=== PATIENT | female | born 1960 | race Two or more races ===

== ENCOUNTER 2018-02-19 09:00 | Outpatient (AMBR) | payer BC, SELFPAY ==
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
--- NOTE | 2018-02-12 16:25 | PT.ODAYNRPT ---
PT Outpatient Daily Note Date of Service: February 12, 2018 OP Daily Note Visit Reasons: low back Outpatient Physical Therapy Treatment Date: 02/12/18 Subjective: Pt's neck felt better after last treatment session. Pt still notice shoulder pain with overhead motions Objective: Please see flow chart for list of ther ex performed Assessment: decrease neck pain after therapy session. Length of Time (minutes) of Treatment: 45 Minutes Office Procedures PT Procedures PT Date of Service: 02/12/18 Therapeutic Exercise 30 minutes: Yes Manual Roller Printing Supervisor 15 minutes: Yes PT Procedures PT Date of Service: 02/07/18 OP PT Eval Mod Complex 30 minutes: Yes Manual Roller Printing Supervisor 15 minutes: Yes
--- NOTE | 2018-02-14 11:10 | PTNOTE_ITS ---
PT Outpatient Daily Note Date of Service: February 14, 2018 OP Daily Note Visit Reasons: low back Outpatient Physical Therapy Treatment Date: 02/14/18 Subjective: Pt's neck feels much better after last treatment session. Pt notice less headache. Pt still has a pinch with shoulder movement. Objective: Please see flow chart for list of ther ex performed Assessment: decrease R subocciptal musculatures as well as upper trape. Today Pt 's shoulder AROM is also better in scaption plane Plan: Continue with PT Length of Time (minutes) of Treatment: 45 Minutes Office Procedures PT Procedures PT Date of Service: 02/12/18 Therapeutic Exercise 30 minutes: Yes Manual Tuber Machine Operator 15 minutes: Yes PT Procedures PT Date of Service: 02/14/18 Therapeutic Exercise 30 minutes: Yes Manual Tuber Machine Operator 15 minutes: Yes PT Procedures PT Date of Service: 02/07/18 OP PT Eval Mod Complex 30 minutes: Yes Manual Tuber Machine Operator 15 minutes: Yes
--- NOTE | 2018-02-19 10:09 | PT.ODAYNRPT ---
PT Outpatient Daily Note Date of Service: February 19, 2018 OP Daily Note Visit Reasons: low back Outpatient Physical Therapy Treatment Date: 02/19/18 Subjective: Pt's neck feels much better or her shoulder is moving better with less pain Objective: Please see flow chart for list of ther ex performed Assessment: tolerate exercises with minimal pain; decrease suboccipital musculature as well as better shoulder mobility after treatment Plan: Continue with PT Length of Time (minutes) of Treatment: 45 Minutes Office Procedures PT Procedures PT Date of Service: 02/12/18 Therapeutic Exercise 30 minutes: Yes Manual Luster Applicator 15 minutes: Yes PT Procedures PT Date of Service: 02/14/18 Therapeutic Exercise 30 minutes: Yes Manual Luster Applicator 15 minutes: Yes PT Procedures PT Date of Service: 02/19/18 Therapeutic Exercise 30 minutes: Yes Manual Luster Applicator 15 minutes: Yes PT Procedures PT Date of Service: 02/07/18 OP PT Eval Mod Complex 30 minutes: Yes Manual Luster Applicator 15 minutes: Yes
== END 2018-02-19 23:59 | disposition home or self-care (01) ==
PROVIDERS: PCP Internal Medicine; Referring Provider Internal Medicine; Visit Provider Internal Medicine
DX: M54.5 Low back pain (principal); M25.511 Pain in right shoulder
CPT/HCPCS: 97110; 97140; 97162

== ENCOUNTER 2018-03-19 10:00 | Outpatient (AMBR) | payer BC, SELFPAY ==
--- NOTE | 2018-02-21 09:58 | PTNOTE_ITS ---
PT Outpatient Daily Note Date of Service: February 21, 2018 OP Daily Note Visit Reasons: low back pain Outpatient Physical Therapy Treatment Date: 02/21/18 Subjective: Pt's neck and shoulder feels much better. Pt still notice some tightness on the right side. Objective: Please see flow chart for list of ther ex performed Assessment: tolerate exercises with minimal pain; today left suboccipital muscular tightness, however, decrease after STM Plan: Continue with PT Length of Time (minutes) of Treatment: 45 Minutes Office Procedures PT Procedures PT Date of Service: 02/21/18 Therapeutic Exercise 30 minutes: Yes Manual Fur Dressing Supervisor 15 minutes: Yes
--- NOTE | 2018-02-26 11:36 | PT.ODAYNRPT ---
PT Outpatient Daily Note Date of Service: February 26, 2018 OP Daily Note Visit Reasons: low back pain Outpatient Physical Therapy Treatment Date: 02/26/18 Subjective: Pt's neck is not feeling too well today. Pt's shoulder is getting better. Pt thinks that there's a torn muscle Objective: Please see flow chart for list of ther ex performed Assessment: today tight subocciptal and right levator and upper trape musculature; decrease tension after stretch and STM. Pt continues to improve with right shoulder mobility with less end range pain Plan: Continue with PT Length of Time (minutes) of Treatment: 45 Minutes Office Procedures PT Procedures PT Date of Service: 02/21/18 Therapeutic Exercise 30 minutes: Yes Manual Fish Boning Machine Feeder 15 minutes: Yes PT Procedures PT Date of Service: 02/26/18 Therapeutic Exercise 30 minutes: Yes Manual Fish Boning Machine Feeder 15 minutes: Yes
--- NOTE | 2018-02-28 13:42 | PT.ODAYNRPT ---
PT Outpatient Daily Note Date of Service: February 28, 2018 OP Daily Note Visit Reasons: low back pain Outpatient Physical Therapy Treatment Date: 02/28/18 Subjective: pt reported feeling discomfort on the R side of the neck upon visit. pt has difficulty sleeping due to pain. Objective: see flow sheet. Assessment: started off with STM to the neck and palpated a lot of elvia and is very tender on both sides of the UT. pt had no complaints of the pressure during STM as she tolerated well. pt demonstrated limited shoulder flexion during OH exercise using thera band of the R shoulder due to pain. Plan: continue POC per PT. Length of Time (minutes) of Treatment: 30 Minutes Office Procedures PT Procedures PT Date of Service: 02/21/18 Therapeutic Exercise 30 minutes: Yes Manual Steamblaster 15 minutes: Yes PT Procedures PT Date of Service: 02/26/18 Therapeutic Exercise 30 minutes: Yes Manual Steamblaster 15 minutes: Yes PT Procedures PT Date of Service: 02/28/18 Therapeutic Exercise 15 minutes: Yes Manual Steamblaster 15 minutes: Yes
--- NOTE | 2018-02-28 13:47 | PTNOTE_ITS ---
PT Outpatient Daily Note Date of Service: February 28, 2018 OP Daily Note Visit Reasons: low back pain Outpatient Physical Therapy Treatment Date: 02/28/18 Subjective: pt reported feeling discomfort on the R side of the neck upon visit. pt has difficulty sleeping due to pain. Objective: see flow sheet. Assessment: started off with STM to the neck and palpated a lot of elvia and is very tender on both sides of the UT. pt had no complaints of the pressure during STM as she tolerated well. pt demonstrated limited shoulder flexion during OH exercise using thera band of the R shoulder due to pain. Plan: continue POC per PT. Length of Time (minutes) of Treatment: 30 Minutes Office Procedures PT Procedures PT Date of Service: 02/21/18 Therapeutic Exercise 30 minutes: Yes Manual Electrical Calibrator 15 minutes: Yes PT Procedures PT Date of Service: 02/26/18 Therapeutic Exercise 30 minutes: Yes Manual Electrical Calibrator 15 minutes: Yes PT Procedures PT Date of Service: 02/28/18 Therapeutic Exercise 15 minutes: Yes Manual Electrical Calibrator 15 minutes: Yes
--- NOTE | 2018-03-05 11:24 | PTNOTE_ITS ---
PT Outpatient Daily Note Date of Service: March 05, 2018 OP Daily Note Visit Reasons: low back pain Outpatient Physical Therapy Treatment Date: 03/05/18 Subjective: Pt mention that her neck is hurting today. Pt didn't do anything different. Pt still notice some deep right side neck pain. Objective: Please see flow chart for list of ther ex performed Assessment: decrease R neck pain; Pt given HEP today to continue stretches on the right side to maintain flexibility. Pt demonstrate HEP safely Plan: Continue with PT Length of Time (minutes) of Treatment: 30 Minutes Office Procedures PT Procedures PT Date of Service: 02/21/18 Therapeutic Exercise 30 minutes: Yes Manual Signals Collector/Analyst 15 minutes: Yes PT Procedures PT Date of Service: 02/26/18 Therapeutic Exercise 30 minutes: Yes Manual Signals Collector/Analyst 15 minutes: Yes PT Procedures PT Date of Service: 02/28/18 Therapeutic Exercise 15 minutes: Yes Manual Signals Collector/Analyst 15 minutes: Yes PT Procedures PT Date of Service: 03/05/18 Therapeutic Exercise 15 minutes: Yes Manual Signals Collector/Analyst 15 minutes: Yes
--- NOTE | 2018-03-07 12:07 | PT.ODAYNRPT ---
PT Outpatient Daily Note Date of Service: March 07, 2018 OP Daily Note Visit Reasons: low back pain Outpatient Physical Therapy Treatment Date: 03/07/18 Subjective: Pt's neck feels better with the HEP. Today Pt notice a pinching pain in the right shoulder. Objective: Please see flow chart for list of ther ex performed Assessment: MWM shoulder flexion decrease shoulder flexion pain while performing mobilization but no carry over when patient perform shoulder flexion arom. Pt exhibit less tension within her neck musculatures today which is from a good carryover from HEP Plan: Continue with PT Length of Time (minutes) of Treatment: 30 Minutes Office Procedures PT Procedures PT Date of Service: 02/21/18 Therapeutic Exercise 30 minutes: Yes Manual Blocker And Sewer 15 minutes: Yes PT Procedures PT Date of Service: 02/26/18 Therapeutic Exercise 30 minutes: Yes Manual Blocker And Sewer 15 minutes: Yes PT Procedures PT Date of Service: 02/28/18 Therapeutic Exercise 15 minutes: Yes Manual Blocker And Sewer 15 minutes: Yes PT Procedures PT Date of Service: 03/05/18 Therapeutic Exercise 15 minutes: Yes Manual Blocker And Sewer 15 minutes: Yes PT Procedures PT Date of Service: 03/07/18 Therapeutic Exercise 15 minutes: Yes Manual Blocker And Sewer 15 minutes: Yes
--- NOTE | 2018-03-12 12:07 | PT.ODAYNRPT ---
PT Outpatient Daily Note Date of Service: March 12, 2018 OP Daily Note Visit Reasons: low back pain Outpatient Physical Therapy Treatment Date: 03/12/18 Subjective: Pt mention that her neck is hurting this week. Pt still notice that neck pain on the right side that is deep and close to her shoulder blade. Pt has been trying to do her exercises at home. Objective: Please see flow chart for list of ther ex performed Assessment: review c/s stretches with patient and educated her to continue at home to maintain her right neck musculatures flexibility. Pt's neck pain decrease after therapy session Plan: Continue with PT Length of Time (minutes) of Treatment: 30 Minutes Office Procedures PT Procedures PT Date of Service: 02/21/18 Therapeutic Exercise 30 minutes: Yes Manual Humanities And Languages Professor 15 minutes: Yes PT Procedures PT Date of Service: 03/12/18 Therapeutic Exercise 15 minutes: Yes Manual Humanities And Languages Professor 15 minutes: Yes PT Procedures PT Date of Service: 02/26/18 Therapeutic Exercise 30 minutes: Yes Manual Humanities And Languages Professor 15 minutes: Yes PT Procedures PT Date of Service: 02/28/18 Therapeutic Exercise 15 minutes: Yes Manual Humanities And Languages Professor 15 minutes: Yes PT Procedures PT Date of Service: 03/05/18 Therapeutic Exercise 15 minutes: Yes Manual Humanities And Languages Professor 15 minutes: Yes PT Procedures PT Date of Service: 03/07/18 Therapeutic Exercise 15 minutes: Yes Manual Humanities And Languages Professor 15 minutes: Yes
--- NOTE | 2018-03-14 13:10 | PT.ODAYNRPT ---
PT Outpatient Daily Note Date of Service: March 14, 2018 OP Daily Note Visit Reasons: low back pain Outpatient Physical Therapy Treatment Date: 03/14/18 Subjective: pt doing well today as she had no complaints. Objective: see flow sheet. Assessment: updated HEP and handed pt a copy. went through all new exercises and she performed a few reps for each exercises after I demonstrated the correct way. answered all pt's questions. pt had no difficulty performing the exercises but did have muscle fatigue of the upper back/neck area. Plan: continue POC per PT. Length of Time (minutes) of Treatment: 30 Minutes Office Procedures PT Procedures PT Date of Service: 02/21/18 Therapeutic Exercise 30 minutes: Yes Manual Nremt 15 minutes: Yes PT Procedures PT Date of Service: 03/12/18 Therapeutic Exercise 15 minutes: Yes Manual Nremt 15 minutes: Yes PT Procedures PT Date of Service: 02/26/18 Therapeutic Exercise 30 minutes: Yes Manual Nremt 15 minutes: Yes PT Procedures PT Date of Service: 02/28/18 Therapeutic Exercise 15 minutes: Yes Manual Nremt 15 minutes: Yes PT Procedures PT Date of Service: 03/05/18 Therapeutic Exercise 15 minutes: Yes Manual Nremt 15 minutes: Yes PT Procedures PT Date of Service: 03/07/18 Therapeutic Exercise 15 minutes: Yes Manual Nremt 15 minutes: Yes PT Procedures PT Date of Service: 03/14/18 Therapeutic Exercise 30 minutes: Yes
--- NOTE | 2018-03-14 13:13 | PTNOTE_ITS ---
PT Outpatient Daily Note Date of Service: March 14, 2018 OP Daily Note Visit Reasons: low back pain Outpatient Physical Therapy Treatment Date: 03/14/18 Subjective: pt doing well today as she had no complaints. Objective: see flow sheet. Assessment: updated HEP and handed pt a copy. went through all new exercises and she performed a few reps for each exercises after I demonstrated the correct way. answered all pt's questions. pt had no difficulty performing the exercises but did have muscle fatigue of the upper back/neck area. Plan: continue POC per PT. Length of Time (minutes) of Treatment: 30 Minutes Office Procedures PT Procedures PT Date of Service: 02/21/18 Therapeutic Exercise 30 minutes: Yes Manual Electric Fan Assembler 15 minutes: Yes PT Procedures PT Date of Service: 03/12/18 Therapeutic Exercise 15 minutes: Yes Manual Electric Fan Assembler 15 minutes: Yes PT Procedures PT Date of Service: 02/26/18 Therapeutic Exercise 30 minutes: Yes Manual Electric Fan Assembler 15 minutes: Yes PT Procedures PT Date of Service: 02/28/18 Therapeutic Exercise 15 minutes: Yes Manual Electric Fan Assembler 15 minutes: Yes PT Procedures PT Date of Service: 03/05/18 Therapeutic Exercise 15 minutes: Yes Manual Electric Fan Assembler 15 minutes: Yes PT Procedures PT Date of Service: 03/07/18 Therapeutic Exercise 15 minutes: Yes Manual Electric Fan Assembler 15 minutes: Yes PT Procedures PT Date of Service: 03/14/18 Therapeutic Exercise 30 minutes: Yes
--- NOTE | 2018-03-19 11:20 | PT.ODS1RPT ---
PT OP Progress/Discharge Note Date of Service: March 19, 2018 Progress Note/DC Note Progress Note/Discharge Note: DC Note Patient Information Visit Reasons: low back pain Medical Diagnosis: Neck Pain; Right Shoulder Pain Treatment Dx #1: Neck Pain Treatment Dx #2: Right Shoulder Mobility Deficits Service Continue Service or Discharge: Discharge Discharge Date: 03/19/18 Status Subjective: Pt stated that her neck and right shoulder pain (5/10) is better since she started physical therapy. Pt has been able to perform work duties, drive, self care, and chores with less limitation. Pt mention that her right neck still feels a little tight with mild pain but manageable with stretches. Pt has been trying to stay consistent with her HEP at home or during work hours. Objective: C/S AROM: all motions are WFL Right Shoulder AROM: all motions are WFL Right Shoulder MMTs: grossly 3+/5 Right Scapula MMTs: grossly 3/5 Palpation: slight TTP right levator scapulae Assessment: Pt's overall c/s and right shoulder mobility has improved since starting physical therapy allowing her to resume work duties, chores, self care, and lifting activities with less limitation. Pt will no longer benefit from physical therapy due to plateau towards functional goals. Pt was instructed on HEP last few sessions of PT to continue at home to maintain gained mobility. Pt performed all exercises safely, thank you for your referrals. Plan: D/C home with HEP and follow up with MD ZUNIGA Office Procedures PT Procedures PT Date of Service: 02/21/18 Therapeutic Exercise 30 minutes: Yes Manual Special Education Science Teacher 15 minutes: Yes PT Procedures PT Date of Service: 03/12/18 Therapeutic Exercise 15 minutes: Yes Manual Special Education Science Teacher 15 minutes: Yes PT Procedures PT Date of Service: 02/26/18 Therapeutic Exercise 30 minutes: Yes Manual Special Education Science Teacher 15 minutes: Yes PT Procedures PT Date of Service: 02/28/18 Therapeutic Exercise 15 minutes: Yes Manual Special Education Science Teacher 15 minutes: Yes PT Procedures PT Date of Service: 03/05/18 Therapeutic Exercise 15 minutes: Yes Manual Special Education Science Teacher 15 minutes: Yes PT Procedures PT Date of Service: 03/07/18 Therapeutic Exercise 15 minutes: Yes Manual Special Education Science Teacher 15 minutes: Yes PT Procedures PT Date of Service: 03/14/18 Therapeutic Exercise 30 minutes: Yes PT Procedures PT Date of Service: 03/19/18 Therapeutic Exercise 15 minutes: Yes Self Care/Home Mgmt 15 minutes: Yes
--- NOTE | 2018-03-19 11:26 | PTNOTE_ITS ---
PT OP Progress/Discharge Note Date of Service: March 19, 2018 Progress Note/DC Note Progress Note/Discharge Note: DC Note Patient Information Visit Reasons: low back pain Medical Diagnosis: Neck Pain; Right Shoulder Pain Treatment Dx #1: Neck Pain Treatment Dx #2: Right Shoulder Mobility Deficits Service Continue Service or Discharge: Discharge Discharge Date: 03/19/18 Status Subjective: Pt stated that her neck and right shoulder pain (5/10) is better since she started physical therapy. Pt has been able to perform work duties, drive, self care, and chores with less limitation. Pt mention that her right neck still feels a little tight with mild pain but manageable with stretches. Pt has been trying to stay consistent with her HEP at home or during work hours. Objective: C/S AROM: all motions are WFL Right Shoulder AROM: all motions are WFL Right Shoulder MMTs: grossly 3+/5 Right Scapula MMTs: grossly 3/5 Palpation: slight TTP right levator scapulae Assessment: Pt's overall c/s and right shoulder mobility has improved since starting physical therapy allowing her to resume work duties, chores, self care , and lifting activities with less limitation. Pt will no longer benefit from physical therapy due to plateau towards functional goals. Pt was instructed on HEP last few sessions of PT to continue at home to maintain gained mobility. Pt performed all exercises safely, thank you for your referrals. Plan: D/C home with HEP and follow up with MD ZUNIGA Office Procedures PT Procedures PT Date of Service: 02/21/18 Therapeutic Exercise 30 minutes: Yes Manual Timber Sprinkler 15 minutes: Yes PT Procedures PT Date of Service: 03/12/18 Therapeutic Exercise 15 minutes: Yes Manual Timber Sprinkler 15 minutes: Yes PT Procedures PT Date of Service: 02/26/18 Therapeutic Exercise 30 minutes: Yes Manual Timber Sprinkler 15 minutes: Yes PT Procedures PT Date of Service: 02/28/18 Therapeutic Exercise 15 minutes: Yes Manual Timber Sprinkler 15 minutes: Yes PT Procedures PT Date of Service: 03/05/18 Therapeutic Exercise 15 minutes: Yes Manual Timber Sprinkler 15 minutes: Yes PT Procedures PT Date of Service: 03/07/18 Therapeutic Exercise 15 minutes: Yes Manual Timber Sprinkler 15 minutes: Yes PT Procedures PT Date of Service: 03/14/18 Therapeutic Exercise 30 minutes: Yes PT Procedures PT Date of Service: 03/19/18 Therapeutic Exercise 15 minutes: Yes Self Care/Home Mgmt 15 minutes: Yes
== END 2018-03-22 23:59 | disposition home or self-care (01) ==
PROVIDERS: PCP Internal Medicine; Referring Provider Internal Medicine; Visit Provider Internal Medicine
DX: M54.5 Low back pain (principal); M54.2 Cervicalgia
CPT/HCPCS: 97110; 97140; 97535

== ENCOUNTER → 2024-08-12 | Outpatient (CLI) | payer BC, SELFPAY ==
--- NOTE | 2024-08-12 13:33 | XR_ITS ---
Examination: Foot, left, 3 views Technique: AP, oblique, lateral views foot, 3 views Date and time of exam: August 12, 2024 1442 hours INDICATIONS: History fracture fifth metatarsal 04/07/2024 FINDINGS: Prominent osteopenia Significant healing fracture fifth metatarsal with stable and satisfactory alignment IMPRESSION: Significant healing fracture fifth metatarsal with stable and satisfactory alignment
== END | disposition home or self-care (01) ==
LOC: CDIM 13:24
PROVIDERS: PCP Internal Medicine; Referring Provider Orthopaedic Surgery; Visit Provider Orthopaedic Surgery
DX: S92.352A Displaced fracture of fifth metatarsal bone, left foot, initial encounter for closed fracture (principal); X58.XXXA Exposure to other specified factors, initial encounter
CPT/HCPCS: 73630

== ENCOUNTER → 2024-10-22 | Outpatient (CLI) | payer BC, SELFPAY ==
--- NOTE | 2024-10-22 15:05 | XR_ITS ---
Examination: Left foot 2 views Technique one AP lateral left foot 2 views Exam date and time: October 22, 2024 1513 hours Comparison August 12, 2024 INDICATIONS: History fracture fifth metatarsal April 07, 2024 FINDINGS: Healed fracture fifth metatarsal with stable and satisfactory alignment Prominent osteopenia IMPRESSION: Healed fracture fifth metatarsal with stable and satisfactory alignment
== END | disposition home or self-care (01) ==
PROVIDERS: PCP Internal Medicine; Referring Provider Orthopaedic Surgery; Visit Provider Orthopaedic Surgery
DX: Z87.81 Personal history of (healed) traumatic fracture (principal)
CPT/HCPCS: 73620

== ENCOUNTER → 2024-11-13 | Outpatient (CLI) | payer BC, SELFPAY ==
--- NOTE | 2024-11-13 09:30 | XR_ITS ---
Examination: Ultrasound soft tissue neck TECHNIQUE: Grayscale sonographic images soft tissue neck Exam date and time: November 13, 2024 0947 hours INDICATIONS: Palpable lump left side of the neck note is beginning one year ago FINDINGS: Right submental 10 x 12 mm lymph node Right upper neck carotid triangle 2.4 x 1.4 cm lymph node Left submental 1.2 x 0.5 cm lymph node Left carotid triangle 2.8 x 1.1 cm lymph node Numerous smaller lymph nodes IMPRESSION: Significant cervical lymphadenopathy, recommend CT soft tissue neck post intravenous contrast follow-up
== END | disposition home or self-care (01) ==
LOC: CDIM 08:59
PROVIDERS: PCP Internal Medicine; Referring Provider Internal Medicine; Visit Provider Internal Medicine
DX: R59.0 Localized enlarged lymph nodes (principal)
CPT/HCPCS: 76536

== ENCOUNTER → 2024-12-10 | Outpatient (CLI) | payer BC, SELFPAY ==
[2024-12-10 17:08] LABS: Albumin, Serum 4.4 gm/dL (3.4-4.8); Anion Gap 9 (7-16); BUN/Creatinine Ratio 19 Ratio (12-20); Blood Urea Nitrogen 21 mg/dL (9-23); Calcium 8.8 mg/dL (8.3-10.6); Calcium (Corrected) 8.8 mg/dL (8.5-10.1); Carbon Dioxide 25.9 mMol/L (20.0-31.0); Chloride 106 mMol/L (98-107); Creatinine (Component) 1.1 mg/dL (0.6-1.3); Glucose 94 mg/dL (74-106); Osmolality,Calculated 284 (275-295); Phosphorous 3.7 mg/dL (2.4-5.1); Sodium 141 mMol/L (136-145); eGFR 57 See Note
== END | disposition home or self-care (01) ==
LOC: COPL 15:22
PROVIDERS: PCP Internal Medicine; Referring Provider Internal Medicine; Visit Provider Internal Medicine
DX: Z00.00 Encounter for general adult medical examination without abnormal findings (principal)
CPT/HCPCS: 36415; 80069

== ENCOUNTER → 2024-12-18 | Outpatient (CLI) | payer BC, SELFPAY ==
--- NOTE | 2024-12-18 15:00 | XR_ITS ---
Examination: CT soft tissue neck, with intravenous contrast. 2-D coronal reconstructions. 2-D sagittal reconstructions. Date and time of exam :December 18, 2024 1616 hours INDICATIONS: Palpable lump left side of the neck noticed beginning one year ago. CTDI: vol (mGy):12.0 DLP: (mGycm):349 Technique: 1.25 mm axial sections of the neck of the obtained. Coronal and sagittal reconstructions have been obtained. Intravenous contrast administered 50 cc Isovue 370 Low dose protocols were performed. One or more of the following dose reduction techniques were used; automated exposure control, adjustment of the mA and/or KV according to patient size, use of iterative reconstruction technique. Findings: Maxillary antra are clear Symmetrical nasopharynx oropharynx Bilateral carotid triangle lymphadenopathy, the largest on the right side 11 mm, the largest on the left side 10 mm The larynx appears normal Thyroid lobes are not enlarged Normal epiglottis Lung apices clear IMPRESSION: Bilateral indeterminate carotid triangle lymphadenopathy. Suggest 3-6 month follow-up ultrasound soft tissue neck
== END | disposition home or self-care (01) ==
LOC: CCTX 14:57
PROVIDERS: PCP Internal Medicine; Referring Provider Internal Medicine; Visit Provider Internal Medicine
DX: R59.0 Localized enlarged lymph nodes (principal)
CPT/HCPCS: 70491; A4649; Q9967

== ENCOUNTER → 2025-02-26 | Outpatient (CLI) | payer OTHER, SELFPAY ==
--- NOTE | 2025-02-26 08:00 | XR_ITS ---
Examination: MRI left ankle, without contrast INDICATIONS: Left ankle swelling and pain beginning one year ago post twisting injury Date and time of exam: February 26, 2025 0937 hours Technique: Multiple axial sagittal and coronal images of the left ankle have been obtained with the Siemens high-resolution 1.5 [facility] MRI scanner. Images obtained include T2-weighted fat-suppressed sagittal sections, TR 3500, TE 46, T2 weighted coronal fat suppressed images, TR 3050, TE 84, T2-weighted transverse fat suppressed images, TR 3260, TE 63, proton density transverse images, TR 4720 TE 46, and T1 weighted coronal images, TR 560, TE 13. Findings: No occult fracture bone contusion or marrow edema No avascular necrosis Moderate plantar fasciitis Dome the talus intact Anterior posterior inferior tibiofibular ligaments intact Moderate strain anterior talofibular ligament Diffuse mild tendinitis flexor tendons Extensor tendons intact IMPRESSION: No occult fracture bone contusion or marrow edema No avascular necrosis Moderate plantar fasciitis Negative for sinus Tarsi syndrome Moderate strain anterior talofibular ligament
--- NOTE | 2025-02-26 08:30 | XR_ITS ---
Examination: MRI left foot, without contrast Date and time of exam: February 27, 2020 5:10 AM INDICATIONS: Twisting injury to the foot one year ago with fracture fifth metatarsal Technique: Multiple axial sagittal and coronal images of the left foot have been obtained with the Siemens high-resolution 1.5 [facility] MRI scanner. Images obtained include T2-weighted fat-suppressed sagittal sections, TR 3500, TE 46, T2 weighted coronal fat suppressed images, TR 3050, TE 84, T2-weighted transverse fat suppressed images, TR 3260, TE 63, proton density transverse images, TR 4720 TE 46, and T1 weighted coronal images, TR 560, TE 13. Findings: Tarsal bones intact No acute metatarsal or digit fracture Moderate osteoarthritis interphalangeal joint fifth digit Mild to moderate osteoarthritis first metatarsophalangeal joint Minor ossification in the Achilles insertion Mild diffuse narrowing intertarsal and tarsometatarsal joints No bone contusion marrow edema or avascular necrosis Negative for sinus Tarsi syndrome IMPRESSION: No occult fracture bone contusion marrow edema Moderate osteoarthritis interphalangeal joint fifth digit Mild to moderate osteoarthritis first metatarsophalangeal joint Minor ossification in the kidneys insertion
--- NOTE | 2025-02-26 10:46 | XR_ITS ---
Examination: Foot, left, 3 views Technique: AP, oblique, lateral views foot, 3 views Date and time of exam: February 26, 2025 10:50 AM INDICATIONS: History foot fracture, months ago with persistent foot pain. FINDINGS: Moderate osteopenia No acute foot fracture No cortical bone destruction No foreign body IMPRESSION: No acute foot fracture Mild osteoarthritis first metatarsophalangeal joint
--- NOTE | 2025-02-26 10:46 | XR_ITS ---
EXAMINATION: Ankle, left 3 views . Technique: Ankle AP, oblique, lateral 3 views Date and time of exam: February 26, 2025 1050 hours INDICATIONS: History ankle fracture persistent ankle pain. FINDINGS: Significant osteopenia. No fracture or dislocation. Mild narrowing tibiotalar joint IMPRESSION: Mild narrowing tibiotalar joint
== END | disposition home or self-care (01) ==
LOC: SMRI 08:46
DX: M25.872 Other specified joint disorders, left ankle and foot (principal); M19.072 Primary osteoarthritis, left ankle and foot; M72.2 Plantar fascial fibromatosis; S99.812A Other specified injuries of left ankle, initial encounter; X50.1XXA Overexertion from prolonged static or awkward postures, initial encounter
CPT/HCPCS: 73610; 73630; 73718; 73721